=== PATIENT | male | born 1960 | race Caucasian/White ===

== ENCOUNTER 2017-06-24 19:40 | Emergency (ER) | payer OTHER | END 2017-06-24 20:46 | disposition home or self-care (01) | LOC: D.ER 19:40 | DX: K02.9 Dental caries, unspecified (principal); K08.89 Other specified disorders of teeth and supporting structures; R68.84 Jaw pain; F17.200 Nicotine dependence, unspecified, uncomplicated ==

== ENCOUNTER 2017-10-22 00:59 | Emergency (ER) | payer OTHER | END 2017-10-22 01:32 | disposition home or self-care (01) | LOC: D.ER 00:59 | DX: K02.9 Dental caries, unspecified (principal); K08.89 Other specified disorders of teeth and supporting structures; F17.200 Nicotine dependence, unspecified, uncomplicated ==

== ENCOUNTER 2018-03-30 13:48 | Inpatient (IN) | payer MEDICAID ==
[~2018-03-30] VITALS: Ht 180.3 cm; Wt 71.1 kg
[2018-03-30 15:29] LABS: BASOPHILS 0 % (0-2); EOSINOPHILS 0.2 % (0-7); HEMATOCRIT 35.1 % (42.0-54.0); HEMOGLOBIN 12.2 g/dL (13.5-17.5); IMMATURE GRANULOCYTES 0.2 % (0-5); LYMPHOCYTES 23.3 % (15-50); MCH 31.4 pg (26.0-34.0); MCHC 34.8 g/dL (31.0-37.0); MCV 90.2 fL (80.0-100.0); MONOCYTES 12.2 % (2-11); NEUTROPHILS 64.1 % (40-80); PLATELET COUNT 107 10x3/uL (130-400); RBC 3.89 10x6/uL (4.20-6.10); RDW 13.9 % (11.5-14.5); WBC 8.2 10x3/uL (4.8-10.8)
[2018-03-30 15:38] LABS: ALBUMIN 3.7 g/dL (3.4-5.0); ALKALINE PHOSPHATASE 68 U/L (46-116); ALT (SGPT) 119 U/L (10-68); BILIRUBIN - TOTAL 0.57 mg/dL (0.2-1.3); CALC OSMOLALITY 296 mosm/kg (275-300); CALCIUM 8.9 mg/dL (8.5-10.1); CARBON DIOXIDE 25.7 mmol/L (21.0-32.0); CHLORIDE - SERUM 102 mmol/L (98-107); CREATININE - SERUM 1.8 mg/dL (0.6-1.3); GLUCOSE 109 mg/dL (74-106); POTASSIUM - SERUM 3.7 mmol/L (3.5-5.1); PROTEIN - SERUM 8.1 g/dL (6.4-8.2); SODIUM 137 mmol/L (136-145); UREA NITROGEN 74 mg/dL (7-18); eGFR NON AFRICAN AMERICAN 42 mL/min (90-120)
[2018-03-30 15:42] LABS: UDS - AMPHET POSITIVE QUAL (NEGATIVE); UDS - BARB NEGATIVE QUAL (NEGATIVE); UDS - BENZO NEGATIVE QUAL (NEGATIVE); UDS - COCAINE NEGATIVE QUAL (NEGATIVE); UDS - OPIATE NEGATIVE QUAL (NEGATIVE); UDS - PCP NEGATIVE QUAL (NEGATIVE); UDS - THC NEGATIVE QUAL (NEGATIVE)
[2018-03-30 15:48] LABS: APPEARANCE CLEAR (CLEAR); BILIRUBIN NEGATIVE (NEGATIVE); COLOR YELLOW (YELLOW); GLUCOSE NEGATIVE (NEGATIVE); KETONE SMALL mg/dL (NEGATIVE); NITRITE NEGATIVE (NEGATIVE); PROTEIN NEGATIVE (NEGATIVE); SPECIFIC GRAVITY 1.015 (1.005-1.020); UROBILINOGEN NORMAL (NORMAL)
[2018-03-30 15:49] LABS: WHITE CELLS - URINE 0-5 /hpf (0-5)
[2018-03-30 15:50] LABS: BACTERIA FEW /hpf (NONE SEEN); EPITHELIAL CELLS OCC /hpf (0-5); RED CELLS - URINE 0-5 /hpf (0-5)
[2018-03-30 15:50] LABS: CKMB 41.1 U/L (0.0-3.6); TROPONIN-I 0.035 ng/mL (0.000-0.060)
[2018-03-30 16:03] LABS: CREATINE KINASE 15782 UL (21-232)
[2018-03-30 21:48] VITALS: BP 104/65; BMI 22.5
[2018-03-31 01:06] VITALS: BP 110/48
[2018-03-31 05:27] LABS: BASOPHILS 0 % (0-2); EOSINOPHILS 1.2 % (0-7); HEMATOCRIT 31.5 % (42.0-54.0); HEMOGLOBIN 10.5 g/dL (13.5-17.5); LYMPHOCYTES 23.3 % (15-50); MCH 30.3 pg (26.0-34.0); MCHC 33.3 g/dL (31.0-37.0); MEAN PLATELET VOLUME 10.9 fL (7.4-10.4); MONOCYTES 13.2 % (2-11); NEUTROPHILS 62.3 % (40-80); RBC 3.46 10x6/uL (4.20-6.10)
[2018-03-31 05:32] LABS: PLATELET COUNT 80 10x3/uL (130-400); WBC 4.9 10x3/uL (4.8-10.8)
[2018-03-31 05:58] LABS: ALBUMIN 2.7 g/dL (3.4-5.0); ALKALINE PHOSPHATASE 64 U/L (46-116); ALT (SGPT) 95 U/L (10-68); BILIRUBIN - TOTAL 0.34 mg/dL (0.2-1.3); CALC OSMOLALITY 292 mosm/kg (275-300); CARBON DIOXIDE 24.3 mmol/L (21.0-32.0); CHLORIDE - SERUM 109 mmol/L (98-107); CREATINE KINASE 10777 UL (21-232); CREATININE - SERUM 1.1 mg/dL (0.6-1.3); GLUCOSE 95 mg/dL (74-106); POTASSIUM - SERUM 3.9 mmol/L (3.5-5.1); PROTEIN - SERUM 6.3 g/dL (6.4-8.2); SODIUM 141 mmol/L (136-145); UREA NITROGEN 46 mg/dL (7-18); eGFR NON AFRICAN AMERICAN 73 mL/min (90-120)
[2018-03-31 06:00] LABS: CKMB 38.2 U/L (0.0-3.6)
[2018-03-31 06:10] VITALS: BP 91/50
[2018-03-31 09:12] VITALS: BP 98/68
[2018-03-31 11:01] VITALS: Ht 180.3 cm; Wt 71.1 kg
[2018-03-31 12:37] VITALS: BP 94/51
== END 2018-03-31 16:59 | disposition home or self-care (01) | DRG 683 ==
LOC: D.ER 13:48 → D.M2 17:40
PROVIDERS: Family Medicine
DX: N17.9 Acute kidney failure, unspecified (principal); F17.203 Nicotine dependence unspecified, with withdrawal; E86.0 Dehydration; D69.6 Thrombocytopenia, unspecified; D64.9 Anemia, unspecified; F15.10 Other stimulant abuse, uncomplicated; R74.8 Abnormal levels of other serum enzymes; B19.20 Unspecified viral hepatitis C without hepatic coma